=== PATIENT | female | born 1975 | race American Indian/Alaskan Native ===

== ENCOUNTER 2016-11-15 14:06 | Outpatient (CLI) | payer OTHER, BC ==
--- NOTE | 2016-11-15 16:44 | Ultrasound Report ---
Left mammogram and left breast ultrasound: Additional compression imaging of the left breast confirms the presence of a small nodule measuring about 1 cm in the superior breast and a second nodule in the mid breast measuring approximately the same but somewhat denser. Both nodules have sharp margins and no calcium. An area of parenchymal asymmetry in the deep lateral breast is no longer identified and represented overlapping tissue. Global ultrasound demonstrated multiple nodules. In the 12:00 1 cm nodule is identified with sharp margins. It is hypoechoic but has multiple speckled echoes throughout. At 6:00 there is a similar nodule but round measuring 4 mm. At 9:00 there is an elongated nodule which is more anechoic measuring just under 7 mm. At 2:00 there is an elongated and sharply defined homogeneously hypoechoic nodule. It is unclear as to which of these nodules corresponds to the mammographic nodules since both nodules are not clearly distinguished as the same in both views. Impressions: None of the findings are particular suspicious and the ultrasound findings may all represent echogenic cysts. I have discussed this with the patient however and recommended that we aspirate the nodules to be sure they are in fact cysts and then to repeat the mammogram to clarify whether the nodules are still present. If any of these are not cystic consideration of biopsy will be made at that time. The patient has been instructed to contact you for scheduling. BI-RADS CATEGORY: 4 = Suspicious ACR BI-RADS MAMMOGRAPHIC CODES: 0 = Needs additional imaging evaluation; 1 = Negative; 2 = Benign; 3 = Probably benign; 4 = Suspicious; 5 = Malignant; 6 = Known biopsy-proven malignancy COMMENT: 1. Dense breast tissue, i.e., adenosis, fibrocystic changes, etc., may obscure an underlying neoplasm. 2. Approximately 10% of cancers are not detected with mammography. 3. A negative mammography report should not delay biopsy if a clinically suspicious mass is present.
== END 2016-11-15 14:07 | disposition home or self-care (01) ==
LOC: MAMMO 14:06
PROVIDERS: ATTEND Obstetrics & Gynecology
DX: N63 Unspecified lump in breast (principal); R92.2 Inconclusive mammogram
CPT/HCPCS: 76641; G0206

== ENCOUNTER 2016-12-05 08:46 | Outpatient (CLI) | payer OTHER, BC ==
--- NOTE | 2016-12-05 12:35 | Ultrasound Report ---
Ultrasound-guided left breast aspiration and left mammogram: Aspiration of 2 small collections was performed based on recent ultrasound and mammogram on November 15. In the 2:00 position there is a 3.4 mm echolucent nodule and in the 9:00 position there is a 5 mm echolucent collection. The skin was cleansed in both locations and 1% lidocaine used for local anesthesia. A 22-gauge needle was used percutaneously under ultrasound guidance to aspirate both lesions with complete collapse. A tiny amount of clear fluid was collected at each location and discarded. Additional imaging however also demonstrated and well-demarcated, elongated, homogeneously hypoechoic 8.5 mm nodule far periphery of the breast at 2:00. A similar nodule is identified in the periphery at 4:00 measuring 5.3 mm. A followup left mammogram again demonstrates the sharply defined and elongated 13 mm nodule in the central to upper left breast. In the superior breast a second nodule is identified which is less dense but also well-circumscribed and elongated and measures just under 1 cm. In the CC projection is a nodule in the lateral breast and also one in the medial breast but its unclear as to which is which in the lateral projection. These have not shown no significant change compared to her prior study. Impressions: The mammographic nodular densities in the ultrasound noncystic nodular densities all appear to have benign characteristics although I cannot be sure as to whether the mammographic and ultrasound nodules are the same. The drained cysts however clearly do not represent these nodules. Recommendations: Repeat left mammogram and left breast ultrasound to reevaluate solid nodules for any progression of size. The findings and recommendations have been discussed with the patient. BI-RADS CATEGORY: 3 = Probably benign ACR BI-RADS MAMMOGRAPHIC CODES: 0 = Needs additional imaging evaluation; 1 = Negative; 2 = Benign; 3 = Probably benign; 4 = Suspicious; 5 = Malignant; 6 = Known biopsy-proven malignancy COMMENT: 1. Dense breast tissue, i.e., adenosis, fibrocystic changes, etc., may obscure an underlying neoplasm. 2. Approximately 10% of cancers are not detected with mammography. 3. A negative mammography report should not delay biopsy if a clinically suspicious mass is present.
== END 2016-12-05 08:47 | disposition home or self-care (01) ==
LOC: US 08:46
PROVIDERS: ATTEND Obstetrics & Gynecology
DX: R92.8 Other abnormal and inconclusive findings on diagnostic imaging of breast (principal)
CPT/HCPCS: 19000; G0206

== ENCOUNTER 2018-04-23 14:35 | Outpatient (CLI) | payer OTHER ==
--- NOTE | 2018-04-24 11:25 | Mammography Report ---
BILATERAL DIGITAL SCREENING MAMMOGRAM with CAD : 04/23/18 14:35:00 CLINICAL: Routine screening.Previous left cyst aspirations. COMPARISON:10/25/16 FINDINGS: The breasts are heterogeneously dense, which may obscure small masses. No new mass, architectural distortion or suspicious calcifications. IMPRESSION: No mammographic evidence of malignancy. BI-RADS CATEGORY: 2 -- Benign RECOMMENDATION: Routine mammographic screening in one year. COMMENT: Patient follow-up letters are generated by our [employer] application.
== END 2018-04-23 14:36 | disposition home or self-care (01) ==
LOC: MAMMO 14:35
PROVIDERS: ATTEND Obstetrics & Gynecology
DX: Z12.31 Encounter for screening mammogram for malignant neoplasm of breast (principal)
CPT/HCPCS: 77067

== ENCOUNTER 2019-04-25 07:08 | Outpatient (CLI) | payer BC ==
--- NOTE | 2019-04-25 14:57 | Mammography Report ---
BILATERAL DIGITAL SCREENING MAMMOGRAM with CAD : 04/25/19 07:08:00 CLINICAL: Routine screening. COMPARISON:04/23/18 and 10/25/16 FINDINGS: The breasts are heterogeneously dense, which may obscure small masses. No new mass, architectural distortion or suspicious calcifications. IMPRESSION: No mammographic evidence of malignancy. BI-RADS CATEGORY: 2 -- Benign RECOMMENDATION: Routine mammographic screening in one year. COMMENT: Patient follow-up letters are generated by our [employer] application.
== END 2019-04-25 07:09 | disposition home or self-care (01) ==
LOC: MAMMO 07:08
PROVIDERS: ATTEND Obstetrics & Gynecology
DX: Z12.31 Encounter for screening mammogram for malignant neoplasm of breast (principal); K21.9 Gastro-esophageal reflux disease without esophagitis
CPT/HCPCS: 77067

== ENCOUNTER 2020-07-08 10:22 | Outpatient (CLI) | payer BC ==
--- NOTE | 2020-07-09 08:32 | Mammography Report ---
DIGITAL SCREENING MAMMOGRAM WITH CAD, 07/08/2020 INDICATION: Routine screening mammography. TECHNIQUE: Digital bilateral 2D mammography was obtained in the craniocaudal and mediolateral obliq ue projections. This examination was interpreted with the benefit of Computer-Aided Detection analysi s. COMPARISON: 04/25/2019, 04/23/2018 FINDINGS: Breast Density: The breasts are heterogeneously dense, which may obscure small masses. There is no evidence of dominant mass, suspicious calcifications or architectural distortion in eithe r breast. A calcified nodule in the 9:00 position middle depth of the left breast is stable. Benign r ight breast nodules/calcifications are unchanged. IMPRESSION: Follow up recommendation: Routine yearly BI-RADS Category 2: Benign. A "normal" or negative report should not discourage follow up or biopsy of a clinically significant f inding. A written summary of these findings will be mailed to the patient. The patient will be entered into a mammography reporting system which will generate a reminder letter for the patient's next appointmen t at the appropriate interval. The [employer] recommends yearly mammograms starting at age 40 and continuing as l coreen as a woman is in good health. Breast MRI is recommended for women with an approximate 20-25% or greater lifetime risk of breast cancer, including women with a strong family history of breast or ova justine cancer or who have been treated for Hodgkin's disease. Signer Name: Adolfo Phipps MD Signed: 07/09/2020 8:27 AM Workstation Name: [employer]
== END 2020-07-08 10:23 | disposition home or self-care (01) ==
LOC: MAMMO 10:22
PROVIDERS: ATTEND Obstetrics & Gynecology
DX: Z12.31 Encounter for screening mammogram for malignant neoplasm of breast (principal)
CPT/HCPCS: 77067